=== PATIENT | female | born 1940 | race Caucasian/White ===

== ENCOUNTER 2016-11-27 09:37 | Outpatient (CLI) ==
[2016-10-31 17:54] VITALS: BMI 24.5
[2016-11-27 10:00] LABS: BILIRUBIN,URINE Negative (NEGATIVE); KETONES,URINE 2+ (NEGATIVE); LEUKOCYTE ESTERASE ,URINE Negative (NEGATIVE); NITRITE,URINE Negative (NEGATIVE); PH,URINE 6.5 (5-9); PROTEIN,URINE Negative (NEGATIVE); URINE, BLOOD Negative (NEGATIVE)
[2016-11-27 10:01] LABS: ADD URINE MICROSCOPIC NO
== END 2016-11-27 09:38 | disposition home or self-care (01) ==
LOC: NONPT 09:37
PROVIDERS: ATTEND Family Medicine
DX: R30.0 Dysuria (principal)
CPT/HCPCS: 81001

== ENCOUNTER 2016-12-18 10:42 | Outpatient (CLI) ==
[2016-10-31 17:54] VITALS: BMI 24.5
[2016-12-18 10:59] LABS: BILIRUBIN,URINE Negative (NEGATIVE); KETONES,URINE Trace (NEGATIVE); LEUKOCYTE ESTERASE ,URINE 3+ (NEGATIVE); NITRITE,URINE Negative (NEGATIVE); PROTEIN,URINE Trace (NEGATIVE); URINE, BLOOD 1+ (NEGATIVE)
[2016-12-18 11:03] LABS: ADD URINE MICROSCOPIC YES
[2016-12-18 11:04] LABS: BACTERIA,URINE TRACE (NOT PRESENT)
== END 2016-12-18 10:43 | disposition home or self-care (01) ==
LOC: NONPT 10:42
PROVIDERS: ATTEND Family Medicine
DX: E11.65 Type 2 diabetes mellitus with hyperglycemia (principal); Z79.899 Other long term (current) drug therapy
CPT/HCPCS: 81001; 87086